=== PATIENT | male | born 2000 | race Caucasian/White ===

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

== ENCOUNTER 2023-06-04 23:32 | Emergency (ER) | payer OTHER ==
[2023-06-04 23:40] VITALS: BP 127/59; PULSE 69; RESP 18; TEMP 97.3; BMI 25.3
[2023-06-05] MEDS ORDERED: TETRACAINE 0.5% HCL 0.6ML DROPPER.BOTTLE OD ONE (01:10)
[2023-06-05] MEDS ORDERED: TETRACAINE 0.5% OPHTH SOLN 2 ML BOTTLE ONE (01:10)
[2023-06-05] MEDS ORDERED: FLUORESCEIN NA 1 EA STRIP ONE (01:10)
[2023-06-05] MEDS ORDERED: FLUORESCEIN NA 1 EA STRIP OD ONE (01:11)
== END 2023-06-05 01:41 | disposition home or self-care (01) ==
LOC: JER 23:32
DX: S05.01XA Injury of conjunctiva and corneal abrasion without foreign body, right eye, initial encounter (principal); W45.8XXA Other foreign body or object entering through skin, initial encounter; Y93.9 Activity, unspecified; Y92.9 Unspecified place or not applicable
CPT/HCPCS: 99283-25